=== PATIENT | female | born 1960 | race African-American/Black ===

== ENCOUNTER 2018-06-14 09:17 | Day surgery (SDC) | payer OTHER ==
[2018-06-14] MEDS: BUPIVACAINE 0.25%/EPI (SDV) 30 ML INJ
[~2018-06-14 09:17] MED LIST: CEFAZOLIN 2 GM/50 ML (PMX) 50 ML IVPB
[2018-06-14] MEDS ORDERED: CEFAZOLIN 2 GM/50 ML (PMX) 50 ML IVPB (10:00)
[2018-06-14] MEDS ORDERED: SOD CHLORIDE 0.9% 1,000 ML IV (10:00)
[2018-06-14 10:36] LABS: ADD MAN DIFF? NO
[2018-06-14 10:50] LABS: WHITE BLOOD COUNT 2.9 10^3/ul (4.8-10.8)
[2018-06-14 10:50] LABS: BASOPHILS % 0.7 % (0.0-2.0); EOSINOPHILS % 1.4 % (0.0-7.0); HEMATOCRIT 30.5 % (37.0-47.0); LYMPHOCYTES # 1.1 10^3/ul (0.8-2.9); LYMPHOCYTES % 38.9 % (15.0-51.0); MEAN CORPUSCULAR HEMOGLOBIN 37.5 pg (29.0-33.0); MEAN CORPUSCULAR HGB CONC 36.1 g/dl (32.0-37.0); MEAN CORPUSCULAR VOLUME 104.1 fl (82.0-101.0); MEAN PLATELET VOLUME 10.7 fl (7.4-10.4); MONOCYTE # 0.4 10^3/ul (0.3-0.9); MONOCYTES % 12.5 % (0.0-11.0); NEUTROPHIL # 1.3 10^3/ul (1.6-7.5); NEUTROPHILS % 46.2 % (39.0-77.0); PLATELET COUNT 107 10^3/UL (140-415); RED BLOOD COUNT 2.93 10^6/ul (4.20-5.40); RED CELL DISTRIBUTION WIDTH 12.6 % (11.5-14.5)
[2018-06-14 11:00] LABS: HOLD TRANSMISSIONS 1; INR 1.09; PROTIME 14.2 Sec (11.9-14.9); PT RATIO 1.1
[2018-06-14 11:01] LABS: PARTIAL THROMBOPLASTIN TIME 28.2 Sec (25.0-35.0)
[2018-06-14] MEDS: SOD CHLORIDE 0.9% 1,000 ML IV (11:01)
[2018-06-14 11:03] LABS: ALANINE AMINOTRANSFERASE 44 IU/L (13-69); ALBUMIN 4.5 g/dl (3.3-4.9); ALBUMIN/GLOBULIN RATIO 1.32; ALKALINE PHOSPHATASE 135 IU/L (42-121); ANION GAP 18 (8-16); ASPARTATE AMINO TRANSFERASE 165 IU/L (15-46); BLOOD UREA NITROGEN 7 mg/dl (7-20); CALCIUM 9.7 mg/dl (8.4-10.2); CARBON DIOXIDE 26 mmol/L (21-31); CHLORIDE 98 mmol/L (97-110); CREATININE 0.44 mg/dl (0.44-1.00); GLUCOSE 93 mg/dl (70-220); SODIUM 139 mmol/L (135-144); TOTAL PROTEIN 7.9 g/dl (6.1-8.1)
[2018-06-14] MEDS ORDERED: PROPOFOL 40 ML (11:29)
[2018-06-14] MEDS ORDERED: LIDOCAINE 2% (SDV) 5 ML INJ (11:30)
[2018-06-14] MEDS ORDERED: FENTAnyl 50 MCG/ML VIAL (11:31)
[2018-06-14] MEDS ORDERED: MIDAZOLAM 1 MG/ML 2 ML INJ (11:31)
[2018-06-14] MEDS ORDERED: ONDANSETRON 4 MG INJ (11:31)
[2018-06-14] MEDS ORDERED: DEXAMETHASONE 4 MG/ML 1 ML INJ (11:33)
[2018-06-14] MEDS ORDERED: FAMOTIDINE 20 MG INJ (11:43)
[2018-06-14 11:58] LABS: ANISOCYTOSIS 1+ (0-0); BAND NEUTROPHILS % (M) 3 % (0-4); EOSINOPHILS % (M) 2 % (0-7); GIANT THROMBO% (M) 2 % (0-0); LYMPHOCYTES #M 1.2 10^3/ul (0.8-2.9); LYMPHOCYTES % (M) 42 % (15-51); MONOCYTE #M 0.2 10^3/ul (0.3-0.9); MONOCYTES % (M) 10 % (0-11); PLATELET ESTIMATE DECREASED; POLYCHROMASIA 1+ (0-0); REACTIVE LYMPHOCYTES #M 0.1 10^3/ul (0.0-0.0); REACTIVE LYMPHOCYTES% (M) 4 % (0-0); SEG NEUT #M 1.1 10^3/ul (1.6-7.5); SEGMENTED NEUTROPHILS (M) % 39 % (39-77); SMUDGE%M 1 % (0-0); STOMATOCYTES 1+ (0-0)
[2018-06-14] MEDS ORDERED: morphine (1 MG/ML) 10ML SYRINGE IV ×2 (13:00)
[2018-06-14] MEDS ORDERED: MEPERIDINE 25 MG INJ IV (13:00)
[2018-06-14] MEDS ORDERED: ONDANSETRON 4 MG INJ IV ×2 (13:00→14:00)
[2018-06-14] MEDS ORDERED: FENTAnyl 50 MCG/ML VIAL IV ×2 (13:00)
[2018-06-14] MEDS ORDERED: ALBUTEROL 0.083% (NEB) 2.5 MG/3 ML AMP HHN (13:00)
[2018-06-14] MEDS ORDERED: HYDROmorphONE 1 MG/5 ML IV SYRINGE IV ×2 (13:00)
[2018-06-14] MEDS ORDERED: OXYCODONE/ACETAMINOPHEN (5/325) TAB PO ×2 (13:00)
[2018-06-14] MEDS ORDERED: LABETALOL HCL 20MG INJ IV (13:00)
[2018-06-14] MEDS ORDERED: DIPHENHYDRAMINE 50 MG INJ IV (13:00)
[2018-06-14] MEDS ORDERED: CEFAZOLIN 1 GM INJ (13:03)
[2018-06-14] MEDS ORDERED: POVIDONE IODINE 10% 28.4 GM OINT (13:19)
[2018-06-14] MEDS: LIDOCAINE 2% (SDV) 5 ML INJ INJ (13:22)
[2018-06-14] MEDS ORDERED: PHENYLephrine (100 MCG/ML) 5ML SYG (13:27)
[2018-06-14] MEDS: BUPIVACAINE 0.25%/EPI (SDV) 30 ML INJ INJ ×2 (13:32)
[2018-06-14] MEDS ORDERED: IBUPROFEN 600 MG TAB PO (14:00)
== END 2018-06-14 15:30 | disposition home or self-care (01) ==
LOC: SDS 09:17
DX: L72.0 Epidermal cyst (principal); L90.5 Scar conditions and fibrosis of skin; I10 Essential (primary) hypertension
CPT/HCPCS: 11406; 71045; 80053; 85025; 85610; 85730; 88307; 93005